=== PATIENT | female | born 1950 | race Two or more races ===

== ENCOUNTER 2022-09-19 13:44 | Emergency (ER) | payer OTHER ==
[2022-09-19] MEDS ORDERED: IBUPROFEN 400 MG TABLET (FP) PO ONE ×2 (13:50→14:03)
[2022-09-19] MEDS ORDERED: ACETAMINOPHEN 325 MG TABLET (FP) PO ONE (13:50)
[2022-09-19] MEDS ORDERED: ACETAMINOPHEN 325 MG TABLET (FP) ONE (14:04)
[2022-09-19 14:18] VITALS: BP 145/96; PULSE 86; RESP 16; TEMP 99; BMI 25.2
== END 2022-09-19 15:22 | disposition home or self-care (01) ==
LOC: FER 13:44
DX: G44.229 Chronic tension-type headache, not intractable (principal)
CPT/HCPCS: 70450-TC; 99284-25